=== PATIENT | female | born 1945 | race Caucasian/White ===

== ENCOUNTER → 2019-12-24 14:53 | Outpatient (BNVA) | payer MEDICARE, MEDICAID, SELFPAY | PROVIDERS: Family Provider Family Medicine; PCP Family Medicine; Visit Provider Family Medicine | DX: Z00.00 Encounter for general adult medical examination without abnormal findings (principal); I10 Essential (primary) hypertension; E78.00 Pure hypercholesterolemia, unspecified; M51.9 Unspecified thoracic, thoracolumbar and lumbosacral intervertebral disc disorder | CPT/HCPCS: 80048; 85025 ==

== ENCOUNTER → 2019-12-26 12:07 | Outpatient (BNVA) | payer MEDICARE, MEDICAID, SELFPAY | PROVIDERS: Family Provider Family Medicine; PCP Family Medicine; Visit Provider Family Medicine | DX: Z00.00 Encounter for general adult medical examination without abnormal findings (principal); I10 Essential (primary) hypertension; E78.00 Pure hypercholesterolemia, unspecified; M51.9 Unspecified thoracic, thoracolumbar and lumbosacral intervertebral disc disorder; E11.9 Type 2 diabetes mellitus without complications | CPT/HCPCS: 83036 ==

== ENCOUNTER → 2021-10-27 10:37 | Outpatient (BNVA) | payer MEDICARE, MEDICAID, SELFPAY | PROVIDERS: Family Provider Family Medicine; PCP Family Medicine; Visit Provider Family Medicine | DX: I10 Essential (primary) hypertension (principal); I25.118 Atherosclerotic heart disease of native coronary artery with other forms of angina pectoris; M51.9 Unspecified thoracic, thoracolumbar and lumbosacral intervertebral disc disorder; E78.00 Pure hypercholesterolemia, unspecified | CPT/HCPCS: 85025 ==

== ENCOUNTER → 2023-01-19 12:21 | Outpatient (BNVA) | payer MEDICARE, MEDICAID, SELFPAY | PROVIDERS: Family Provider Family Medicine; PCP Family Medicine; Visit Provider Family Medicine | DX: I10 Essential (primary) hypertension (principal); E11.9 Type 2 diabetes mellitus without complications | CPT/HCPCS: 80053; 85025 ==

== ENCOUNTER → 2024-04-15 14:28 | Outpatient (BNVA) | payer MEDICARE, MEDICAID, SELFPAY | PROVIDERS: Family Provider Family Medicine; PCP Family Medicine; Visit Provider Internal Medicine | DX: R07.9 Chest pain, unspecified (principal) | CPT/HCPCS: 93005; 99204 ==

== ENCOUNTER 2024-04-25 14:47 | Outpatient (CLI) | payer MEDICARE, MEDICAID, SELFPAY ==
[2024-04-25 15:07] LABS: Basophils % 0.8 %; Eosinophils # 0.3 10^3/uL (0.0-0.8); Eosinophils % 6.9 %; Hematocrit 39.3 % (36-47); Lymphocytes # 1.7 10^3/uL (0.8-4.8); Lymphocytes % 33.5 %; Mean Corpuscular HGB Conc 32.6 g/dL (30-55); Mean Corpuscular Hemoglobin 30.7 pg (27-33); Mean Corpuscular Volume 94.2 fl (85-98); Monocytes # 0.4 10^3/uL (0.2-0.9); Monocytes % 8.5 %; Neutrophils # 2.49 10^3/uL (1.8-7.7); Neutrophils % 50.1 %; Nucleated Red Blood Cells % 0 %; Platelet Count 204 10^3/cmm (157-399); Red Blood Count 4.17 10^6/uL (3.85-5.65); White Blood Count 4.96 10^3/uL (3.29-11.43)
[2024-04-25 15:19] LABS: INR 0.98 (0.83-1.21); Prothrombin Time (Patient) 13.7 Seconds (12.0-15.1)
[2024-04-25 15:23] LABS: Anion Gap 13.3 (5-19); Blood Urea Nitrogen 19 mg/dL (8-23); Calcium 8.9 mg/dL (8.5-10.5); Carbon Dioxide 25 mmol/L (22-29); Chloride 102 mmol/L (98-107); Glucose 126 mg/dL (65-115); Osmolality Calculated 286 mOsm/kg (285-295); Potassium 4.3 mmol/L (3.5-5.1); Sodium 136 mmol/L (136-145)
== END 2024-04-25 14:48 | disposition home or self-care (01) ==
LOC: LAB 14:49
PROVIDERS: Family Provider Family Medicine; PCP Family Medicine; Visit Provider Internal Medicine
DX: I25.118 Atherosclerotic heart disease of native coronary artery with other forms of angina pectoris (principal); I10 Essential (primary) hypertension
CPT/HCPCS: 36415; 80048; 85025; 85610

== ENCOUNTER 2024-05-07 07:35 | Outpatient (CLI) | payer MEDICARE, MEDICAID, SELFPAY ==
[2024-05-07] VITALS (26 sets, daily range): BP systolic 122–183; BP diastolic 62–100; PULSE 58–80; RESP 14–22; TEMP 36.4–36.9; O2SAT 93–98; BMI 24.5
--- NOTE | 2024-05-07 07:30 | XACV_ITS ---
Exam Room: 2 Ht: 163 cm Wt: 65 kg BSA: 1.72 m2 Gender: Female : 1945 Any Known Allergies: Other Exam Priority: Routine Procedure(s): Procedure Description: Diagnostic procedure Procedure Description: PCI procedure Procedure Description: Drug Eluting Coronary Stent Procedure Description: PTCA Procedure Description: Miscellaneous Procedure Description: ACT Procedure Description: Coronary Angiography Diagnostic Cath Status: Elective Diagnostic Findings * INDICATION: Worsening angina. * Left Main has mild 30% distal vessel disease. * Left Anterior Descending has prior stents in the mid vessel with chornic total occlusion at distal edge. Apical LAD reconstitutes via collaterals. * Circumflex has no significant disease. * Posterior Descending Right: Severe 90-95% stenosis in proximal section. * Coronary angiography shows right dominance. PCI Status: Elective PCI Indication: Other Interventional Findings * Posterior Descending Right: 90% stenosis treated with a AB TREK 2.25X12 RX BALLOON, and SHANELL Wiggins MILAGROS 2.5X15 DOMINICK. * Proceudre detail: We engaged RCA with JR 4 guide catheter. IV heparin was administered to maintain anticoagulation. Run-through guidewire was used to cross the critical PDA lesion. We then predilated it with 2.25x12 mm semi-compliant balloon. This was followed by placement of 2.5x15mm resolute milagros DOMINICK. At this time final angiogram was performed that showed excellent stent expansion, no residual stenosis and CARI 3 flow. Guidewire and guide catheter were removed. Patient left the medical laboratory manager in a stable condition. Conclusions 1. Critical PDA stenosis s/p successful revascularization with 1 stent. 2. Posterior Descending Right was treated with a Balloon, and Drug Eluting Stent. Recommendations * Dual antiplatelet therapy with aspirin and plavix for atleast 1 year. * High intensity statin therapy. * Outpatient cardiology follow up in 2 weeks. Interventional RX Recommendation: PCI w/o planned CABG Diagnostic RX Recommendation: PCI w/o planned CABG Anticoagulation: Heparin Pressures Phase:Rest AO : 133 / 65 ( 95 ) @ 11:33:00 AM 140 / 55 ( 91 ) @ 11:55:00 AM Clinical Evaluation EBL: 5mL-10mL Procedural Details Procedure Consent Obtained. Admit Source: Out Patient. Pre-Procedure Time Out. Identified patient by full name and date of as verbalized by the patient/guarantor. Does the consent match the physician's order: Yes. Accurate & Complete Informed Consent: Yes. Inpatient/Outpatient History & Physical on Chart: Yes. If H&P is completed, is and addenduem needed: No; If yes, is the addendum complete: N/A. Visualize and Verify Site with Patient/Guarantor: N/A. Relevant Radiology Images available: N/A. The risks, benefits, and alternatives of sedation and/or procedure were discussed by physician. The patient agrees to continue. Procedure started. [facility] Clinical Fraility Score: 3: Managing Well. High Wire Artist Indications: Worsening Angina. Chest Pain Symptom Assessment: Typical Angina Symptoms. Correct patient, site and procedure confirmed by cath team. Current diagnosis: Chest Pain. PERRLA. Strong, equal hand edge runner bilaterally. Lungs clear x 5 lobes. IV Site on Arrival: 20 gauge in the left anticubital. IV Fluids: 0.9% NaCl at KVO. 0 mL infused prior to medical laboratory manager. Pre Procedural Pulses: bilateral dorsalis pedis was 3+. Pre Procedural Pulses: bilateral radial was 3+. Pre Procedural Pulses: bilateral posterior tibial was 3+. Oxygen started at 2liters/min via nasal canula. right radial was prepped with chloroprep then draped in the usual sterile fashion. right groin was prepped with chloroprep then draped in the usual sterile fashion. Physician notified. Baseline sample Acquired. HR: 83 BPM. Physician arrived. Physician scrubbed in. Immediate Pre-Procedure Time Out. Correct Patient: Yes; Correct Procedure: Yes; Correct Site: Yes; Correct Patient Position: Yes; Correct Supplies: Yes; Dried Flammable Prep: Yes; Blood Products Available: No;. Lidocaine 1% infiltrated to the right radial. Arterial access obtained. A 5 mongolian TIG catheter in over wire. Multiple views taken of left coronary artery. Catheter redirected to the RCA. Multiple views taken of right coronary artery. Catheter removed over the exchange wire. Add inventory: Co-airline pilot/first officer, endoflator. 6 mongolian JR 4 guide catheter was inserted over the wire. Runthrough guidewire was advanced through the guide catheter to lesion in the PDA. Guidewire advanced across lesion. Balloon inserted to lesion in the PDA. Inflation number : 1 A AB TREK 2.25X12 RX BALLOON was prepped and advanced across the R PDA , then inflated to 8 RYLAN for 0:17 seconds. Inflation number: 2 The AB TREK 2.25X12 RX BALLOON was reinflated across the R PDA, to 8 RYLAN for 0:10 seconds. Balloon out. Results checked. Stent inserted to lesion in the PDA. Undeployed stent out over wire. 6fr Guideliner in over wire. Stent inserted to lesion in the PDA. Inflation Number : 3 A MDT R MILAGROS 2.5X15 DOMINICK -Lot Number# [id number] EXP 07-08-2026 was prepped and advanced across the R PDA. The stent was deployed at 12 RYLAN for 0:17 seconds. Stent balloon out over wire. Guideliner out OTW. Results checked. Wire out. ACT drawn. Results out of range high results seconds. Therapeutic limits - pre-heparin administration 90-150 seconds and monitoring heparin during a vascular procedure >250 seconds. Guide catheter out. Post Procedure: Pulses reassessed and unchanged. PERRLA. Strong, equal hand edge runner bilaterally. No VTE prophylaxis required. Medication's Wasted: Lidocaine 1% = 18 mL. Medication's Wasted: Nitro = 49.8 mg. Medication's Wasted: Other = Fentanyl 50mcg. Total IV fluids: 30 mL. Post-op diagnosis: Severe PDA stenosis, post PCI placement of 1 DOMINICK. LAD BISQUE PLACER. Complications: None. Estimated blood loss: 5mL-10mL. Responsiveness - Normal response to verbal stimuli; alert and oriented, PERRLA. Airway - Unaffected, no intervention required; spontaneous ventilation. Circulation: W/N/L, pulses unchanged. Nausea/Vomiting: No. ACT drawn. Results out of range low results seconds. Therapeutic limits - pre-heparin administration 90-150 seconds and monitoring heparin during a vascular procedure >250 seconds. ACT drawn. Results 236 seconds. Therapeutic limits - pre-heparin administration 90-150 seconds and monitoring heparin during a vascular procedure >250 seconds. A TR Band was successful obtaining hemostatsis at the Right Radial artery insertion site. Procedure completed. Patient transferred by stretcher to CPRU. Vital chart was stopped. Access Site Site: Right Radial artery Sheath Size: 6 Fr Hemostasis Method: TR Band Hemostasis Success: Successful Procedure Medications Start: 10:24 AM Stop: 10:24 AM Medication: Versed Amount: 1 mg Route: I.V. Start: 10:24 AM Stop: 10:24 AM Medication: Fentanyl Amount: 25 mcg Route: I.V. Start: 10:30 AM Stop: 10:30 AM Medication: Nitrogylcerin Amount: 200 mcg Route: I.A. Start: 10:38 AM Stop: 10:38 AM Medication: Heparin Amount: 6000 units Route: I.V. Start: 10:44 AM Stop: 10:44 AM Medication: Fentanyl Amount: 25 mcg Route: I.V. Start: 10:49 AM Stop: 10:49 AM Medication: Versed Amount: 1 mg Route: I.V. Start: 11:00 AM Stop: 11:00 AM Medication: Plavix Amount: 600 mg Route: P.O. Start: 11:10 AM Stop: 11:10 AM Medication: Heparin Amount: 1000 units Route: I.V. I, the attending physician, have reviewed and verified all procedure medications. Yes, all medications given per verbal order History/Risk Factors Hypertension: Yes Dyslipidemia: No Peripheral Arterial Disease (PAD): No Myocardial Infarction (KS): No Obesity: No Renal Disease: No Tobacco Use: Never Prior Interventions PCI: Yes CABG: No Valve Surgery: No Report Signatures Finalized by Jonnie Wilks MD on 05/19/2024 05:19 PM
[2024-05-07] MEDS: diphenhydrAMINE 50 mg Capsule PO (08:10)
[2024-05-07] MEDS: aspirin 325 mg Tablet PO (08:10)
--- NOTE | 2024-05-07 10:24 | W.PM.OPSUD ---
Surgery/Procedure H&P Update DATE OF PROCEDURE: May 07, 2024 DATE H&P PERFORMED: 05/07/24 H&P UPDATE INFORMATION: I have reviewed H&P completed within last 30 days, I have examined patient prior to procedure and No changes to prior documentation PREOP DIAGNOSIS: Worsening angina PRIMARY INDICATION FOR PROCEDURE: Worsening angina PLANNED PROCEDURE: Operation Date: 05/07/24 08:30 Proposed Procedures p Cardiac Catheterization - [facility] W/WO LV and Coros(Left) - Jonnie Wilks M.D Possible percutaneous coronary intervention PATIENT REASSESSED PRIOR TO SEDATION, WITH NO CHANGE NOTED: Yes PHYSICAL EXAM: alert, oriented x 3, clear to auscultation bilaterally and regular rate & rhythm AIRWAY EVAL/ANESTHESIA PLAN: normal airway, ASA III, Local Anesthesia, Risks, benefits & alternatives of sedation and/or procedure discussed and Patient agrees to continue as planned ADDITIONAL INFORMATION: Moderate sedation
--- NOTE | 2024-05-07 11:13 | P.PCN_ITS ---
Procedure Note: Date of procedure: 05/07/24 Pre-procedure diagnosis: Worsening angina Post-procedure diagnosis: other (Severe PDA stenosis s/p PCI with 1 stent) Procedure: Left main artery is patent with mild distal disease. LAD has mid vessel stents with occlusion in distal segment. Apical vessel has reconstitution via collaterals. Left circumflex artery has proximal mild to moderate disease. PDA has severe 90% stenosis s/p successful revascularization with 1 stent Aspirin and plavix for atleast 1 year High intensity statin therapy Performing Provider: Jonnie Wilks Complications: None Condition: stable Disposition: floor Coding Level of Care Code Acute Code for [facility]
--- NOTE | 2024-05-07 11:15 | SUR.PHASEI ---
Received patient from the pipelines laborer. Status post cardiac catheterization via the right radial approach. TR Band in place. Site is hemostatic at this time. Patient and family at bedside to discuss findings with MD. Vitals and assessments per flowsheet. Call light given to the patient. Informed to call for needs.
--- NOTE | 2024-05-07 11:40 | SUR.PHASEI ---
iv fluids set to 75 ml/hr post cath as ordered. Infusing without difficulty.
--- NOTE | 2024-05-07 14:00 | SUR.PHASEI ---
NOTIFIECATION Patient reports blood in Urine. Reported to Dr Wilks. States Nurse Practioner will be by to address shortly.
--- NOTE | 2024-05-07 14:05 | PM.MISC ---
Miscellaneous Note Purpose of Documentation: Was notified by nursing staff patient had blood-tinged urine while in recovery post coronary angiogram with stenting of the PDA. Visualization of the urine shows very small amount of blood, no clots. She has not had blood in her urine before. Will order UA since patient is reporting flank pain which occurred previous to procedure today.
--- NOTE | 2024-05-07 14:12 | SUR.PHASEI ---
Nurse practitioner in to discuss blood and c/o with the patient. No new orders at this time.
[2024-05-07 15:08] LABS: Bilirubin Urine Negative (Negative); Blood Urine 3+ (Negative); Glucose Urine UA Negative (Normal); Ketones Urine Negative (Negative); Leukocyte Esterase Urine 1+ (Negative); Nitrate Urine Negative (Negative); Protein Urine 1+ (Negative); Specific Gravity, Urine 1.029 (1.005-1.030); Urine Appearance Cloudy (CLEAR); pH Urine 7.5 (5-7)
[2024-05-07 15:12] LABS: Add Urine Microscopic? YES; Bacteria Urine None Seen /hpf; Hyaline Casts Urine 0-4 /lpf; RBC Urine >100 /hpf (0-2); Squamous Epithelial Cell Urine 0-5 /hpf (0-5); WBC Urine 0-5 /hpf (0-5)
[2024-05-07 15:17] LABS: Urine Color Red (Yellow)
[2024-05-07 15:20] LABS: Add Urine Culture? Yes
--- NOTE | 2024-05-07 15:33 | PC.NURSE ---
Called report to ERICA Gastelum on CSU.
--- NOTE | 2024-05-07 16:26 | PC.NURSE ---
Provider is updated that patients blood pressures are elevated. Her last one was 181/100. Provider ordered to give her amlodipine 5mg now and still give her the metoprolol at 1800.
[2024-05-07] MEDS: amlodipine 5 mg Tablet PO (16:58)
[2024-05-07] MEDS: metoprolol tartrate 50 mg Tablet PO (17:27)
--- NOTE | 2024-05-07 19:22 | PC.NURSE ---
Patient's right radial TR-band, the air is removed slowly. The nurse in starch factory laborer started to remove the air and the remainder of the air is removed on CSU 2 ml's at a time. TR-band is removed and a dressing of a 2x2 and tegaderm is placed. No hematoma is noted. Patient tolerated well. Patient is reeducated to not use her right wrist/hand for the next 24 hours. Patient states understanding.
[2024-05-07] MEDS: fentaNYL 50 mcg/mL INJ 2mL 12.5 MCG IVP (20:22)
[2024-05-07] MEDS: atorvastatin 40 mg Tablet PO (20:34)
[2024-05-07] MEDS: temazepam 15 mg Capsule PO (20:40)
--- NOTE | 2024-05-07 22:54 | PC.NURSE ---
pt had complained of having blood in urine at the begining of shift, pt instructed to call for after voiding and do not flush toilet and a hat was placed to catch urine. pt removed hat and flushed toilet after using bathroom, pt stated there was no blood in urine and BM was just normal. pt again reminded that nursing needs to see urine output and measure it. pt agreeable at this time
--- NOTE | 2024-05-07 23:31 | PC.NURSE ---
Received report from Radha MALDONADO and assumed care.
--- NOTE | 2024-05-08 01:28 | PC.NURSE ---
Patient c/o right flank pain. Patient is unable to get norco 10 till 0300. Requested pain medication for right flank pain, aslo let Dr Bryan know day shift received a UA due to blood in urine. Dr. Bryan at bedside to examine patient. Received orders to given norco 10 now and MD to put in CT renal.
[2024-05-08] MEDS: HYDROcodone-acetaminophen 10-325 mg Tablet 1 TAB PO (01:32)
[2024-05-08 03:48] LABS: Basophils % 0.7 %; Eosinophils # 0.3 10^3/uL (0.0-0.8); Eosinophils % 6.3 %; Lymphocytes # 0.9 10^3/uL (0.8-4.8); Lymphocytes % 17.1 %; Mean Corpuscular HGB Conc 33.2 g/dL (30-55); Mean Corpuscular Hemoglobin 31.2 pg (27-33); Mean Corpuscular Volume 93.9 fl (85-98); Mean Platelet Volume 10.2 fL (7.4-10.4); Monocytes # 0.6 10^3/uL (0.2-0.9); Monocytes % 10.6 %; Neutrophils # 3.51 10^3/uL (1.8-7.7); Neutrophils % 65.1 %; Nucleated Red Blood Cells % 0 %; Platelet Count 193 10^3/cmm (157-399); Red Blood Count 3.94 10^6/uL (3.85-5.65); Red Cell Distribution Width 12.9 % (12.1-15.1); White Blood Count 5.39 10^3/uL (3.29-11.43)
[2024-05-08 04:08] LABS: Blood Urea Nitrogen 23 mg/dL (8-23); Calcium 8.7 mg/dL (8.5-10.5); Carbon Dioxide 22 mmol/L (22-29); Chloride 105 mmol/L (98-107); Glucose 95 mg/dL (65-115); Osmolality Calculated 289 mOsm/kg (285-295); Sodium 138 mmol/L (136-145)
[2024-05-08 04:55] VITALS: BP 164/69; PULSE 91; RESP 29; TEMP 36.6; O2SAT 96
[2024-05-08 07:37] VITALS: BP 148/56; PULSE 56; RESP 17; TEMP 36.5; O2SAT 98
[2024-05-08] MEDS: tamsulosin 0.4 mg Capsule PO (08:18)
[2024-05-08] MEDS: clopidogrel 75 mg Tablet PO (08:18)
[2024-05-08] MEDS: metoprolol tartrate 50 mg Tablet PO (08:18)
[2024-05-08] MEDS: aspirin 81 mg EC Tablet PO (08:19)
--- NOTE | 2024-05-08 09:00 | CT_ITS ---
WS: [id number] CT ABDOMEN AND PELVIS NONCONTRAST HISTORY: Flank pain, hematuria TECHNIQUE: Imaging performed through the abdomen and pelvis. Coronal and sagittal reformats are submitted. All CT scans at [facility] use at least one of these dose optimization techniques: automated exposure control; mA and/or kV adjustment per patient size (includes targeted exams where dose is matched to clinical indication); or iterative reconstruction. DLP: 438.12 mGy.cm COMPARISON: None available. Lower thorax: There are few small cysts in the RIGHT lower lobe. Normal size heart. Small hiatal hernia. Liver: Mild heterogeneity. No intrahepatic duct dilatation identified. Gallbladder: Prior cholecystectomy. Pancreas: Normal size and attenuation. Normal pancreatic duct. No pancreatitis or mass. Spleen: Normal size spleen with a few granulomata. Adrenal glands: Normal. No mass. Right kidney: Normal size kidney with no mass or hydronephrosis. Left kidney: Normal size kidney with no mass or hydronephrosis. Aorta: Scattered calcified plaque throughout the aorta. Plaque extends into the SMA and celiac axis. Extensive calcification in the splenic artery. No free fluid, intraperitoneal air or significant lymphadenopathy. GI tract: Stomach is minimally distended. No small bowel obstruction. Diffuse moderate constipation. No colitis. Very few diverticula in the sigmoid colon. No diverticulitis. No appendicitis. The appendix is not definitely identified. No ischemic changes of the GI tract. Abdominal wall: Small umbilical hernia contains fat only. Pelvis: Peripheral calcifications in the uterus consistent with phleboliths. No free fluid or adenopathy in the pelvis. Urinary bladder is negative. Osseous structures: Minimal increase in lumbar lordosis. Slight concave deformity of L5 and T11. CT/CT kidney stone [id number] IMPRESSION: 1. No renal obstruction or ureteral calcifications. 2. Moderate diffuse constipation with no ischemic changes. 3. Atherosclerotic plaque throughout the aorta and mesenteric arteries. 4. No ascites. 5. Prior cholecystectomy. 6. Minimal sigmoid diverticulosis without acute diverticulitis.
--- NOTE | 2024-05-08 09:35 | P.SS_ITS ---
<Statement entered by Jonnie Wilks M.D - 05/09/24 08:00> Patient was evaluated and cared for in conjunction with an advanced practice practitioner.? I personally examined the patient and reviewed the chart and all pertinent data including imaging, telemetry, and laboratory results.? I discussed the patient in detail with the advanced practice practitioner.? Please see? their note for complete discharge summary, testing results and agreed upon plan of care for the patient. Patient doing well. Hematuria has resolved. GENERAL: Patient is alert, awake and oriented x3. HEART: Regular S1 and S2 LUNGS: Clear to auscultate bilaterally. CENTRAL NERVOUS SYSTEM: Grossly nonfocal. EXTREMITIES: Lower extremities without edema bilaterally. Short Stay Summary Providers Date of Admit/Discharge: 05/08/24 Attending Provider: Jonnie Wilks M.D Primary Care Provider: Meaghan Telles MD Chief Complaint: I20.0 HPI History of Present Illness Demi Herrera (Pat) is a 78 year old female with past medical history of coronary artery disease with prior stents in [place] in 2007 who has been referred to establish care and as she has been having worsening chest pain. Patient says she is now feeling daily chest pressure. It is substernal. She had stress test last year in [place] and based on that she was told that medical therapy would be preferred. However patient and family state that they have noticed worsening symptoms now. Her EKG today shows sinus rhythm with infe rior leads Q waves. Review of Systems Card: Reports: chest pain (resolved at discharge); Denies: palpitations, irregular heart rhythm, edema, swelling of feet/ankles, lightheadedness, syncope, pre-syncope, dyspnea on exertion, orthopnea or leg pain with exertion Resp: Denies: dyspnea, productive cough or non-productive cough GI: Denies: hematochezia : Denies: hematuria Skin/Breast: Reports: surgical incision Darwin/Lymph: Denies: easy bleeding Home Meds/Allergies Home Medications and Allergies Home Medications ?Medication ?Instructions ?Recorded ?Confirmed ?Type amlodipine 2.5 mg tablet 2.5 mg PO DAILY PRN Blood Pr essure 04/15/24 05/07/24 History famotidine 20 mg tablet 20 mg PO BID PRN Heartburn 0 04/15/24 05/07/24 History lisinopril 20 mg tablet 20 mg PO DAILY 04/15/2404/20 History Allergies Allergy/AdvReac Type Severity Reaction Status Date / Time sulfamethoxazole (From Allergy rash Verified 05/07/24 07:58 Bactrim) trimethoprim (From Bactrim) Allergy rash Verified 05/07/24 07:58 PFSH Acute PFSH: Medical History Diabetes Coronary artery disease Lumbar disc disease Hypercholesteremia Hyperlipidemia Hypertension Social History Smoking and tobacco/nicotine status: never used tobacco/nicotine Alcohol intake: never Substance/Drug Use: never Vitals/I&O/Wt Last Vital Signs Temp 97.7 F 05/08/24 07:37 Pulse 56 L 05/08/24 07:37 Resp 17 05/08/24 07:37 BP 148/56 05/08/24 07:37 Pulse Ox 98 05/08/24 07:37 O2 Del Method Room Air 05/08/24 07:37 Weight last 48 hrs Weight 143 lb Physical Exam Const: COMMON NORMALS: no acute distress and patient oriented x3 GENERAL APPEARANCE: cooperative ORIENTATION/CONSCIOUSNESS: Yes awake, Yes oriented to person, Yes oriented to place and Yes oriented to time Chest: COMMONS NORMALS: normal inspection of the chest and normal palpation of entire chest wall CHEST: Yes Symmetrical chest wall rise Resp: COMMON NORMALS: normal respiratory effort, No retractions, No use of accessory muscles and clear to auscultation bilaterally AUSCULTATION: clear to auscultation bilaterally Cardio: COMMON NORMALS: regular rate, regular rhythm, S1 normal heart sound present, S2 normal heart sound present, No gallops present (Cardio), No clicks present (Cardio), No murmurs present (Cardio) and No rub (Cardio) RATE: regular rate RHYTHM: regular rhythm HEART SOUNDS: S1 normal heart sound present and S2 normal heart sound present PERIPHERAL PULSES: radial pulses present positive right 2+ and femoral pulses present positive right 2+ Neuro: COMMON NORMALS: patient oriented x3 and moves all extremities SENSORIUM/ORIENTATION: Yes oriented to person, Yes oriented to place and Yes oriented to time Skin: WOUNDS: Yes surgical site (no hematoma palpable) Details: no odor Hospital Course Hospital Course She underwent coronary angiogram on 05/07/2024 using a right radial approach finding mild distal disease of the left main, patent mid LAD stents with occlusion of the distal segment and apical reconstitution via collaterals, proximal left circumflex mild to moderate disease, severe stenosis of PDA which was treated with DOMINICK x 1. She is recommended aspirin and Plavix therapy for 1 year with addition of statin therapy. Metoprolol tartrate was added to her regimen due to uncontrolled hypertension. She has not had any complications with right radial cath site. The slight blood-tinged urine she experienced yesterday has resolved. She had reported right sided flank pain yesterday which had also been occurring previous to admission. This was evaluated further with CT of the abdomen and pelvis with no acute findings. UA results discussed with our hospitalist who did not feel antibiotic treatment was warranted at this time, no nitrates present. She is able to discharge home. Follow up with cardiology clinic in 7-10 days, PCP in one week. SSS Data Data Completed and Pending: Completed Studies During Hospitalization Category Date Time Status CT kidney stone [id number] Stat Cat Scan 05/08/24 09:00 Completed Pending at discharge Category Date Time Status CST request for service Routin e Exams 05/07/24 07:30 Taken Urine Culture [facility] 05/07/24 15:00 Received Discharge Plan Discharge Patient Disposition: Home Prescriptions: New atorvastatin 40 mg Tablet 40 mg PO BEDTIME Qty: 90 3RF clopidogrel 75 mg Tablet 75 mg PO DAILY Qty: 90 3RF metoprolol tartrate 50 mg Tablet 50 mg PO BID Qty: 180 3RF aspirin 81 mg Tablet,Delayed Release (Dr/Ec) 81 mg PO DAILY Qty: 90 0RF tamsulosin 0.4 mg Capsule 0.4 mg PO DAILY Qty: 30 0RF Continued famotidine 20 mg tablet 20 mg PO BID PRN (Reason: Heartburn) amlodipine 2.5 mg tablet 2.5 mg PO DAILY PRN (Reason: Blood Pressure) Rx Instructions: Takes base on blood pressure reading lisinopril 20 mg tablet 20 mg PO DAILY nitroglycerin 0.4 mg tablet, sublingual 0.4 mg SUBLINGUAL Q5M PRN (Reason: chest pain) Qty: 30 3RF Rx Instructions: do not exceed 3 doses per episode hydrocodone-acetaminophen 10-325 mg tablet 1 tab PO BID PRN (Reason: pain) 30 Days Qty: 60 0RF Discharge Orders: Discharge Order (Routine); Ordered 05/08/24 Ordered By: Marie Acevedo Referrals: Meaghan Telles MD [Primary Care Provider] - 1 week Marie Acevedo FNP [Nurse Practitioner] - 7-10 days Diet: Advance as tolerated Activity: Increase activity as tolerated Patient Instructions: Coronary Angioplasty (DC), Chest Pain Stoplight, Post Angiogram Home Care Instructions Activity Restrictions/Additional Instructions: No lifting over 5 pounds with right arm for the next 3 days. Print Language: Andorran Attestations Medical Necessity Statement*: discharge today Time Spent in Patient Care*: less than 30 min Quality Metrics Clinical Quality Measures: [ No reported AMI, CVA or VTE this stay ] Coding Level of Care Code Acute Code for [facility]
--- NOTE | 2024-05-08 11:28 | PC.NURSE ---
Discharge is discussed with daughter present. Medication review, follow up visits, post angiogram home care, chest pain stoplight, coronary angioplasty. Patient and daughter state understanding.
== END 2024-05-08 11:28 | disposition home or self-care (01) ==
LOC: CCL 07:46 → CSU 15:37
PROVIDERS: Nurse Practitioner Family; Family Provider Family Medicine; PCP Family Medicine; Visit Provider Internal Medicine
DX: I25.10 Atherosclerotic heart disease of native coronary artery without angina pectoris (principal); Z95.5 Presence of coronary angioplasty implant and graft; R31.9 Hematuria, unspecified; I10 Essential (primary) hypertension; E11.9 Type 2 diabetes mellitus without complications; E78.00 Pure hypercholesterolemia, unspecified
CPT/HCPCS: 36415; 74176; 80048; 81001; 85025; 85347; 87086; 87186; 93454; 96374; 96376; 99152; 99153; C1725; C1769; C1874; C1887; C1894; C9600; J1644; J2250; J3010; J3490; J7030; J9999; Q0163; Q9967

== ENCOUNTER → 2024-05-27 13:33 | Outpatient (BNVA) | payer MEDICARE, MEDICAID, SELFPAY | PROVIDERS: Family Provider Family Medicine; PCP Family Medicine; Visit Provider Nurse Practitioner Family | DX: I25.118 Atherosclerotic heart disease of native coronary artery with other forms of angina pectoris (principal); I10 Essential (primary) hypertension; Z79.01 Long term (current) use of anticoagulants; Z79.82 Long term (current) use of aspirin; Z95.5 Presence of coronary angioplasty implant and graft | CPT/HCPCS: 99214 ==

== ENCOUNTER → 2024-09-13 11:42 | Outpatient (BNVA) | payer MEDICARE, MEDICAID, SELFPAY | PROVIDERS: Family Provider Family Medicine; PCP Family Medicine; Visit Provider Nurse Practitioner Family | DX: I25.118 Atherosclerotic heart disease of native coronary artery with other forms of angina pectoris (principal); Z79.02 Long term (current) use of antithrombotics/antiplatelets; I10 Essential (primary) hypertension; E11.69 Type 2 diabetes mellitus with other specified complication; E78.00 Pure hypercholesterolemia, unspecified; Z95.5 Presence of coronary angioplasty implant and graft | CPT/HCPCS: 36415; 80053; 85025; 93005; 99213 ==

== ENCOUNTER → 2024-11-04 12:12 | Outpatient (BNVA) | payer MEDICARE, MEDICAID, SELFPAY | PROVIDERS: Family Provider Family Medicine; PCP Family Medicine; Visit Provider Family Medicine | DX: R30.0 Dysuria (principal) | CPT/HCPCS: 81000 ==

== ENCOUNTER → 2024-12-03 12:47 | Outpatient (BNVA) | payer MEDICARE, MEDICAID, SELFPAY | PROVIDERS: PCP Family Medicine; Visit Provider Internal Medicine | DX: I25.118 Atherosclerotic heart disease of native coronary artery with other forms of angina pectoris (principal); I10 Essential (primary) hypertension; E78.00 Pure hypercholesterolemia, unspecified; Z95.5 Presence of coronary angioplasty implant and graft | CPT/HCPCS: 99214 ==